=== PATIENT | male | born 1985 ===

== ENCOUNTER 2023-06-16 15:15 | Outpatient (CLI) | payer OTHER ==
[2023-06-16 17:34] LABS: BASOPHILS # (AUTO) 0.1 10^3/uL (0.0-0.1); BASOPHILS % (AUTO) 1.3 %; EOSINOPHILS # (AUTO) 0.6 10^3/uL (0.0-0.7); EOSINOPHILS % (AUTO) 9.7 %; HCT - HEMATOCRIT 39.7 % (42.0-52.0); HGB - HEMOGLOBIN 13.5 g/dL (14.0-18.0); LYMPHOCYTES # (AUTO) 2.1 10^3/uL (1.5-3.5); LYMPHOCYTES % (AUTO) 33.3 %; MEAN CORPUSCULAR VOLUME 91.3 fL (80.0-94.0); MONOCYTES # (AUTO) 0.5 10^3/uL (0.0-1.0); MONOCYTES % (AUTO) 7.3 %; NEUTROPHILS % (AUTO) 48.2 %; PLT - PLATELET COUNT 262 10^3/uL (130-450); RED BLOOD COUNT 4.35 10^6/uL (4.70-6.10); RED CELL DISTRIBUTION WIDTH 11.9 % (12.0-15.0); WHITE BLOOD COUNT 6.2 x10^3/uL (4.8-10.8)
[2023-06-16 17:52] LABS: ALBUMIN 4.9 g/dL (3.2-5.5); ALBUMIN/GLOBULIN RATIO 1.7 (1.0-2.2); BILIRUBIN,TOTAL 0.5 mg/dL (0.2-1.0); CALCIUM 9.9 mg/dL (8.5-10.3); CREATININE 0.7 mg/dL (0.6-1.3); CRP - C-REACTIVE PROTEIN 0.5 mg/dL (<0.5); POTASSIUM 3.9 mmol/L (3.5-4.5); TOTAL PROTEIN 7.8 g/dL (6.4-8.9); TROPONIN I HIGH SENSITIVITY 2.8 ng/L (2.3-19.7)
[2023-06-16 18:02] LABS: THYROID STIMULATING HORMONE 1.17 uIU/mL (0.34-5.60)
== END 2023-06-16 15:30 | disposition home or self-care (01) ==
LOC: LAB.N 15:15
PROVIDERS: ATTEND Registered Nurse
DX: H93.A3 Pulsatile tinnitus, bilateral (principal); R00.2 Palpitations
CPT/HCPCS: 36415; 80053; 84443; 84484; 85025; 86140

== ENCOUNTER 2023-07-08 13:56 | Outpatient (CLI) | payer OTHER ==
--- NOTE | 2023-07-08 19:25 | Ultrasound Report ---
PROCEDURE: Carotid Doppler Complete INDICATIONS: PALPITATIONS TECHNIQUE: Duplex carotid ultrasound was obtained and lif[employer] representatives images were recorded with veloc ity measurements. Any estimate of stenosis was obtained with reference to standards endorsed by the [employer] COMPARISON: None. FINDINGS: Right side: Brachial blood pressure: 120/79 mm Hg. Common carotid artery peak systolic velocity: 90 cm/sec. Internal carotid artery peak systolic velocity: 101 cm/sec. Internal carotid artery end diastolic velocity: 36 cm/sec. External carotid artery peak systolic velocity: 114 cm/sec. ICA/CCA peak systolic ratio: 1.1 . Small scale imaging description: Trace atherosclerotic plaque Percent internal carotid artery stenosis: Less than 50. Vertebral artery: Flow direction is antegrade. Left side: Brachial blood pressure: 118/69 mm Hg. Common carotid artery peak systolic velocity: 96 cm/sec. Internal carotid artery peak systolic velocity: 81 cm/sec. Internal carotid artery end diastolic velocity: 36 cm/sec. External carotid artery peak systolic velocity: 89 cm/sec. ICA/CCA peak systolic ratio: 0.8 . Small scale imaging description: Atherosclerotic plaque, mild Percent internal carotid artery stenosis: Less than 50. Vertebral artery: Flow direction is antegrade. IMPRESSION: 1. Atherosclerotic plaque in both proximal internal carotid arteries without evidence of hemodynamic significant stenosis Reviewed by: Tushar Story MD on 07/08/2023 6:24 PM [facility] Approved by: Tushar Story MD on 07/08/2023 6:24 PM ANDI Station ID: [id number]
== END 2023-07-08 13:57 | disposition home or self-care (01) ==
LOC: DI 13:56
PROVIDERS: ATTEND Registered Nurse
DX: I65.23 Occlusion and stenosis of bilateral carotid arteries (principal)
CPT/HCPCS: 93880

== ENCOUNTER 2023-09-29 12:32 | Outpatient (CLI) | payer OTHER | END 2023-09-29 12:33 | disposition home or self-care (01) | LOC: DI 12:32 | PROVIDERS: ATTEND Family Medicine | DX: R94.31 Abnormal electrocardiogram [ECG] [EKG] (principal) | CPT/HCPCS: 93306 ==